=== PATIENT | male | born 1955 | race Caucasian/White ===

== ENCOUNTER → 2016-07-19 | Outpatient (CLI) | payer OTHER ==
[~2016-07-19] MED LIST: REGADENOSON 0.4 MG/5 ML DISP.SYRIN. IV ONE
== END | disposition home or self-care (01) ==
LOC: PCVCIMAG 07:36
PROVIDERS: ATTEND Internal Medicine
DX: I25.10 Atherosclerotic heart disease of native coronary artery without angina pectoris (principal); I10 Essential (primary) hypertension; I44.7 Left bundle-branch block, unspecified; Z95.5 Presence of coronary angioplasty implant and graft
CPT/HCPCS: 78452; 93017; 93306; A9500; J2785